=== PATIENT | male | born 1970 | race Caucasian/White ===

== ENCOUNTER 2025-02-17 17:12 | Emergency (ER) | payer BC, SELFPAY ==
--- OUTSIDE RECORDS SUMMARY | 2019-01-17 04:50 | XMS_ITS | Continuity of Care Document ---
Author Organization [facility] Address [address] [place] [address] Phone Care Team Providers Care Pre School Teacher Name Role Phone Pepe Gilman MD Unavailable Unavailable Allergies, Adverse Reactions, Alerts Substance Reaction Status Criticality No Known Allergies Active No Inform ation Medications Medication Instructions Dosage Effective Dates (start - stop) Status Comments Medrol (Axel) 4 mg tablets in a dose pack take by Oral route Not Available - Active tizanidine 4 mg tablet take 1 tablet by oral route every 6 - 8 hours as needed not to exceed 3 doses in 24 hours 4 MG - Active Naprosyn 500 mg tablet take 1 tablet by oral route 2 times every day with food 500 MG - Active Medrol (Axel) 4 mg tablets in a dose pack take by Oral route Not Available - Active Medrol (Axel) 4 mg tablets in a dose pack take by Oral route Not Available - No Longer Active Procedures Procedure Date Office/outpatient visit,est, mod 2018 X-ray exam of neck spine2-3 views Njx interlaminar crv/thrc Methylprednisolone 40 MG inj Office/outpatient visit,est, low 2017 Office/outpatient visit,est, mod 2016 X-ray exam of ankle, complete 7 Pneuma/vac walk boot pre ots Office/outpatient visit,new, mod 2016 Njx interlaminar crv/thrc Methylprednisolone 40 MG inj Office/outpatient visit,est, mod 2016 Office/outpatient visit,est, mod 2016 MRI Cervical Spine wo Contrast 17 Advance Directives Directive Yes / No Effective Date File Name No Information Encounters Encounter Description Practice Location Reason(s) For Visit Diagnoses Date Provider Providers Copied on Encounter Office/outpat ient visit,est, mod [facility], [address] [place], [place], [facility], tel:[phone] [facility] No Information 8 9 Kalina Cantu. [address] [place], [place], [id number], . tel:[phone] [facility] [address], [facility], tel:[phone] [facility] No Information 8 Kami Abrams. [address] [place], [place], [id number], [place]. tel:[phone] Office/outpat ient visit,est, low [facility], [facility] [address] [place], [place], [facility], tel:[phone] [facility] No Information 8 Kami Abrams. [address] [place], [place], [id number], [place]. tel:[phone] Office/outpat ient visit,est, mod [facility], [address] [place] [address], [facility], [place] tel:[phone] [facility] No Information 7 Ephraim Ervin. [address] [place], [place], [id number], [place]. tel:[phone] [facility] [address], [facility], tel:[phone] [facility] No Information 7 Ephraim Ervin. [address] [place], [place], [id number], [place]. tel:[phone] Office/outpat ient visit,new, mod [facility], [address], [place], [address], [place] tel:[phone] 00 [facility] cervical spine (chief complaint) Spinal stenosis, cervical regionRadicu lopathy, cervical region 7 Regshana Adenin. [address] [place], [place], [id number], [place]. tel:[phone] Referring Provider: Pepe Gilman, [address], [place], [address] . tel:[phone] Office/outpat ient visit,[facility], [facility], [facility] [place], [address], [place] tel:[phone] [facility] No Information 7 Kalina Cantu. [address], [place], [place], [address], [place]. tel:[phone] Office/outpat ient visit,est, [facility], [facility] [place], [address], [place] tel:[phone] 00 [facility] No Information 7 Kalina Cantu. [address], [place], [place], [id number], . tel:[phone] [facility], [facility] [place], [address], [place] tel:[phone] 00 [facility] No Information 7 Ephraim Ervin. [address], [place], [id number], [place]. tel:[phone] Referring Provider: Arcadio Rubi, [address], [place], [address] . tel:[phone] [facility], [address] [place], [address], [place] tel:[phone] 00 [facility] No Information 7 Ephraim Ervin. [address] [place], [place], [id number], [place]. tel:[phone] Family History Family Member Type Diagnosis Age At Onset No Information Payers Payer name Insurance type Covered alliance party ID Authorpeacephil ramirez(s) [employer] - [id number] Social History Type Description Quantity Date Captured Comments Sex Male Smoking Status No Information Chief Complaint And Reason For Visit No Information Reason For Referral Reason For Referral No Information Plan Of Treatment Date Type Action Status Future Order: Radiology Order MR I Cervical Spine WO Contrast (69215), Collected on: , Sent on: Sent History Of Present Illness Encounter Date Complaint History Of Prese nt Illness cervical spine Functional Status Date Functional Assessmen t No Information Instructions Date Instruction Additional Infor mation No Information Assessments Type Assessment Date No Information Patient Care Teams Name Effective Dates (start - stop) Status Members No Information
[2025-02-17 17:15] VITALS: BP 123/101; PULSE 96; RESP 18; TEMP 36.5; O2SAT 95; BMI 20.9
--- NOTE | 2025-02-17 17:28 | PC.NURSE ---
upon trying to obtain medical history pt states I never go to the doctor.
--- NOTE | 2025-02-17 17:30 | ED_ITS ---
<Statement entered by Aleixa Go DO - 02/17/25 20:52> I was consulted by the VINCENT, and we discussed the complexity of problems being addressed. I approve the treatment and management plan for this patient's care in the emergency department, thus performing a substantial portion of the medical decision making. Alexia Go DO Discharge Plan Disposition Patient Disposition: Home, Self-Care Condition: Good Prescriptions Prescriptions: New meloxicam 7.5 mg tablet 7.5 mg PO DAILY Qty: 30 0RF Referrals Follow up/Referrals: Vaibhav Howell MD [Nurse Practitioner, Pain Management] - See instructions Krishna Chapman DO [Staff Physician, Family Practice] - See instructions Provider,Referral, [Primary Care Provider, Medical] - See instructions Activity Restrictions/Add. Instructions Additional Instructions/Restrictions: Please call for PCP appointment above, for physical therapy referral and MRI of your lumbar spine, as well as pain management, would recommend physical therapy ibuprofen Tylenol (Mobic), do not take ibuprofen and Mobic together, ice, please follow-up with your other doctors in the upcoming days/weeks, please return to the emergency department with any worsening signs or symptoms. Clinical Impressions Clinical Impression: Lumbar radiculopathy, Spondylolisthesis of lumbar region Instructions Patient Instructions: DI for Low Back Pain Print Language Print Language: Chilean Discharge ED Provider: Alexia Go General Adult HPI General Chief complaint: Back Pain/Injury Stated complaint: lower back pain, hurts to have bowel movement Time Seen by Provider: 02/17/25 17:22 Mode of Arrival: Ambulatory Source of Information: Patient Description of Symptoms (Recalled from ER Triage Doc. by RN): pt presents to ED c/o right low back pain. pt poor historian and unable to get straight answers. pt does state I drink daily. History of Present Illness HPI narrative: 54-year-old male presents to the emergency department accompanied by his with a 3-day history of right sided lower back/flank pain, with some radiation to his abdomen, as well as some right sided with sounds like radiculopathy as it extends posteriorly down the patient's leg, patient endorses remote lower back injury several years ago, patient states I have not been to the chiropractor in 10 years, states he deals with sciatica , denies any recent injury or trauma, states that I got some new furniture and may have slept wrong on it . Patient denies any fever chills chest pain shortness of breath, admits to nausea no vomiting, denies any constipation, but states yesterday he was sitting on the toilet trying to have a bowel movement when he experienced severe pain , in his low back down his right leg, patient has had no difficulty with having a bowel movement, last bowel movement this morning, no urinary bladder or bowel dysfunction, no saddle anesthesia, no numbness or tingling of the affected extremities, denies any hematuria melena hematochezia or hematemesis, patient denies any testicular pain or swelling, urethral discharge, no recent sexual contacts or risky sexual behaviors, patient is a current everyday tobacco user (smokeless tobacco), current everyday alcohol use, patient states 3-4 beers daily , but states at least a sixpack daily , patient denies any illicit drug use. Other past medical history is consistent with what sounds like psoriasis/psoriatic arthritis, patient however somewhat of a poor historian, patient is somewhat of a poor historian, and does appear actively intoxicated at the bedside. Initial triage vitals are unremarkable. Please note that above description of symptoms, in this electronic medical record under categorization of recalled from ER triage doctor by RN are reflective of an initial nursing assessment, however, is not reflective of my full history and physical exam that was personally taken and clarified. Consequentially, this preceding description of symptoms, which may include the patient's categorized chief complaint in the EMR, do not reflect my personal clinical impression, and the ultimate description of history of present illness and patient stated complaints should be deferred to this section of the note. Unless stated otherwise or congruent with this section of the note, additional signs, symptoms, or incongruence should be interpreted as inaccurate with my clinical impression. Onset (ago): day(s) Related Data Previous Rx's ?Medication ?Instructions ?Recorded meloxicam 7.5 mg tablet 7.5 mg PO DAILY #30 tabs 02/03 Allergies Allergy/AdvReac Type Severity Reaction Status Date / Time No Known Allergies Allergy Verified 02/17/25 17:27 [facility] Disclaimer: The information contained in this section may have been updated after the patient was seen, as this information can be updated by other users. Social History Smoking Status: Current every day smoker alcohol intake: current current occupational status: other Travel in the last 8 weeks?: None ROS Obtained: Yes All systems reviewed & no additional complaints except as documented Physical Exam General General appearance: alert, in no apparent distress and appears intoxicated Head Head exam: atraumatic and normocephalic Eye Eye exam: Present PERRL and EOMI ENT ENT exam: Present mucous membranes moist Neck Neck exam: Present normal inspection Chest Chest inspection: Present normal inspection and symmetric chest wall rise Respiratory Respiratory exam: Present normal lung sounds bilaterally; Absent respiratory distress, wheezes or stridor Cardiovascular Cardiovascular exam: Present regular rate and normal rhythm Abdominal Exam Abdominal exam: Present soft and tenderness; Absent guarding, rebound, rigidity or tenderness at McBurney's Point Abdominal tenderness: Present RLQ and mild Extremities Exam Extremities exam: Present normal inspection Back Exam Back exam: Present paraspinal tenderness and straight leg raise (R); Absent vertebral tenderness or straight leg raise (L) Comment: Mild paraspinal tenderness palpation to the right sided lower lumbar spine,/buttock area, faintly positive straight leg test on the right Neurological Exam Neurological exam: Present alert, oriented X3 and other (5 out of 5 strength in the bilateral lower and upper extremities, no gross sensation deficit) Psychiatric Psychiatric exam: Present normal affect Skin Skin exam: Present warm and dry Medical Decision Making Medical Records Medical records reviewed: Yes I reviewed the patient's medical records. Screening: Per USPSTF and CDC recommendations, given the prevalence of disease in our region, it is our hospital?s policy to screen for HIV and viral Hepatitis for all patients aged 18 and over and those with ongoing risk factors. Rishabh Inquiry Pt receiving controlled substance: No Rishabh was queried for this patient: No Vital Signs: 02/17/25 17:15 02/17/25 18:00 02/17/25 18:23 Temperature 97.7 F Temperature Source Oral Pulse Rate 78 71 Pulse Rate [Right Radial] 96 H Respiratory Rate 18 18 Blood Pressure 120/86 120/86 Blood Pressure [Right Arm] 123/101 H Blood Pressure Mean [Right Arm] 108 Blood Pressure Source Automatic Cuff Blood Pressure Source [Right Arm] Automatic Cuff Blood Pressure Position Sitting Blood Pressure Position [Right Arm] Sitting 02 Sat by Pulse Oximetry 95 99 95 Oxygen Delivery Method Room Air Room Air 02/17/25 18:30 Temperature Temperature Source Pulse Rate 69 Pulse Rate [Right Radial] Respiratory Rate Blood Pressure 121/87 Blood Pressure [Right Arm] Blood Pressure Mean [Right Arm] Blood Pressure Source Blood Pressure Source [Right Arm] Blood Pressure Position Blood Pressure Position [Right Arm] 02 Sat by Pulse Oximetry 99 Oxygen Delivery Method Lab Data Lab results reviewed: Yes I reviewed the patient's lab results. Lab Results 02/17/25 17:27: Urine Opiates Screen Negative, Urine Methadone Screen Negative, Ur Barbituates Screen Negative, Ur Phencyclidine Scrn Negative, Ur Amphetamines Screen Negative, U Benzodiazepines Scrn Negative, Urine Cocaine Screen Negative, U Marijuana (THC) Screen Negative 02/17/25 17:29: WBC 5.0, RBC 4.43 L, Hgb 15.7, Hct 43.0, MCV 97.1 H, MCH 35.4 H, MCHC 36.5 H, RDW 12.2, Plt Count 125 L, MPV 9.5, Neut % (Auto) 45.7, Lymph % (Auto) 41.2, [place] % (Auto) 11.1 H, Eos % (Auto) 0.8, Baso % (Auto) 1.0, Neut # (Auto) 2.3, Lymph # (Auto) 2.1, Gl[place] # (Auto) 0.6, Eos # (Auto) 0.0, Baso # (Auto) 0.1, PT 11.9, INR 1.08, APTT 25.4, Sodium 147 H, Potassium 4.1, Chloride 108 H, Carbon Dioxide 28, Anion Gap 15.1 H, BUN 6 L, Creatinine 0.80, Estimated Creat Clear 102, Estimated GFR 101, Est GFR ( Amer) 122, Glucose 91, Calcium 9.6, Total Bilirubin 0.7, AST 188 H, ALT 74, Alkaline Phosphatase 81, T otal Protein 8.7 H, Albumin 4.7, Globulin 4.0 H, Albumin/Globulin Ratio 1.2, Amylase 92, Lipase 303 H, Plasma/Serum Alcohol 373 H 02/17/25 17:31: Lactate 1.2 02/17/25 17:55: Urine Color Yellow, Urine Appearance Clear, Urine pH 6.0, Ur Specific [place] <= 1.005, Urine Protein Negative, Urine Glucose (UA) Negative, Urine Ketones Negative, Urine Blood Negative, Urine Nitrate Negative, Urine Bilirubin Negative, Urine Urobilinogen 0.2, Ur Leukocyte Esterase Negative 02/17/25 17:29 02/17/25 17:29 Orders (Tests/Meds): ED MEDICATIONS Generic Name Dose Route Start Last Admin Trade Name Freq PRN Reason Stop Dose Admin Sodium Chloride 10 ml 02/17/25 17:27 Sodium Chloride 0.9% 10ml Flush Syringe IV 03/19/25 17:26 NEEDED PRN Maintain IV Site Sodium Chloride 10 ml 02/17/25 18:51 02/17/25 18:51 Sodium Chloride 0.9% 10ml Syr (Rad Only) IV 03/19/25 18:50 10 ml NEEDED PRN Administration Maintain IV Site Discontinued Medications Generic Name Dose Route Start Last Admin Trade Name Freq PRN Reason Stop Dose Admin Iopamidol 75 ml 02/17/25 18:48 02/17/25 18:50 Iopamidol-370 (76%);100ml Bottle IV 02/17/25 18:49 75 ml ONCE ONE Administration Ketorolac Tromethamine 15 mg 02/17/25 17:41 02/17/25 17:49 Ketorolac 15mg/Ml Vial IV 02/17/25 17:42 15 mg ONCE ONE Administration Ondansetron HCl 4 mg 02/17/25 17:42 02/17/25 17:49 Ondansetron 4mg/2ml Vial IV 02/17/25 17:43 4 mg ONCE ONE Administration ORDERS Category Date Time Status CT abdomen pelvis w con Stat Cat Scan 02/17/25 17:[address] lumbar spine wo con Stat Cat Scan 02/17/25 17:41 Completed Amylase Stat Lab 02/17/25 17:29 Completed Complete Blood Count Auto Diff Stat Lab 02/17/25 17:29 Completed Comprehensive Metabolic Panel Stat Lab 02/17/25 17:29 Completed Ethanol [Ethyl Alcohol] Stat Lab 02/17/25 17:29 Completed Lactic Acid Stat Lab 02/17/25 17:31 Completed Lipase Stat Lab 02/17/25 17:29 Completed PT INR [Prothrombin Time INR] Stat Lab 02/17/25 17:29 Completed PTT [Activated Partial Thrombo Time] Stat Lab 02/17/25 17:29 Completed UDS [Drug Screen,Urine] Stat Lab 02/17/25 17:27 Completed Urinalysis and Microscopic Stat Lab 02/17/25 17:55 Results Medical Decision Narrative: 54-year-old male presents to the emergency department with right sided lower back pain/radiculopathy, right-sided flank pain, for 3 days, differential diagnose include but not limited to pancreatitis, cholecystitis, hepatitis, cirrhosis, cholelithiasis, acute lumbar sacral strain, degenerative disc disease of lumbar spine, lumbar spondylosis, diverticulitis, acute UTI, acute pyelonephritis, nephrolithiasis, ureterolithiasis, among others. I discussed this patient's case with the attending physician Will obtain basic laboratory studies, lipase amylase, UDS, PT, INR, PTT UA, lactic acid level, ethyl alcohol level, obtain CT and pelvis with contrast, CT lumbar spine without contrast, will give 15 mg IV Toradol and 4 mg IV Zofran for pain and nausea. MCV is mildly elevated at 97.1, thrombocytopenia at 125, otherwise unremarkable CBC No lactic acidosis UA is unremarkable Ethyl alcohol level is elevated at 373 CMP is notable for mild hyponatremia at 147, AST is elevated at 188, lipase level is elevated 303, otherwise unremarkable CMP. PT/INR and PTT within normal limits UDS negative I reviewed the patient's CT lumbar spine without contrast along the corresponding radiologic report, no acute osseous abnormality, bilateral L4 spondylosis with grade 1 anterior thesis of L4 and L5, degenerative findings as above. I reviewed the patient CT abdomen pelvis with contrast along the corresponding radiological report, no acute abnormality involving the abdomen or pelvis nonemergent findings as above. I discussed the results with the patient him at the bedside, patient and family are in agreement with the current treatment plan/discharge plan, patient is current everyday drinker, has no plans to stop, recommend physical therapy, PCP follow-up with MRI of the lumbar spine, patient has no red flag signs or symptoms, no numbness or tingling saddle anesthesia urinary bladder or bowel dysfunction, discussed need to follow-up with spine surgeon/pain management as well as PCP. Patient voiced understanding and agreement to current treatment plan/discharge plan. Believe the patient's lipase elevation is minimal, and does not attribute to his current symptomatology. Will prescribe the patient Mobic 7.5 mg p.o. as needed for symptomatic relief, patient was given strict ED return precautions. Patient family voiced understanding and agreement with the current treatment plan/discharge plan. Of note, I did offer muscle relaxers, short course of steroids to the patient and family the bedside patient declined at this time but would like to pursue anti-inflammatory medications. Critical Care Critical Care Time Critical Care Time: No
--- NOTE | 2025-02-17 17:32 | PC.NURSE ---
urinal at bedside. pt instructed on needing sample.
--- NOTE | 2025-02-17 17:40 | CT_ITS ---
PROCEDURE INFORMATION: Exam: CT Abdomen And Pelvis With Contrast Exam date and time: 02/17/2025 6:50 PM Age: 54 years old Clinical indication: Other: Lower back pain; Additional info: Lower back pain, constipation, lower abd pain RT TECHNIQUE: Imaging protocol: Computed tomography of the abdomen and pelvis with contrast. Radiation optimization: All CT scans at this facility use at least one of these dose optimization techniques: automated exposure control; mA and/or kV adjustment per patient size (includes targeted exams where dose is matched to clinical indication); or iterative reconstruction. Contrast material: ISOVUE; Contrast volume: 75 ml; Contrast route: IV; COMPARISON: No relevant prior studies available. FINDINGS: Limitations: Patient motion. Lungs: Bibasilar dependent hypoventilatory change. Liver: Hepatic steatosis. Gallbladder and biliary ducts: Normal. No calcified stones. No ductal dilation. Pancreas: Normal. No ductal dilation. Spleen: Normal. No splenomegaly. Adrenal glands: Normal. No mass. Kidneys and ureters: Normal. No hydronephrosis. Stomach and bowel: Unremarkable. No obstruction. No mucosal thickening. Appendix: Normal appendix. Intraperitoneal space: Unremarkable. No free air. No significant fluid collection. Vasculature: Vascular calcification. Phleboliths within the pelvis. Lymph nodes: Unremarkable. No enlarged lymph nodes. Urinary bladder: Thickening of the urinary bladder wall at least in part secondary to under distension. Reproductive: Unremarkable as visualized. Bones/joints: There are degenerative changes involving the spine. Soft tissues: Unremarkable. IMPRESSION: 1. No acute abnormality involving the abdomen or pelvis. 2. Non emergent findings as above.
--- NOTE | 2025-02-17 17:41 | CT_ITS ---
PROCEDURE INFORMATION: Exam: CT Lumbar Spine Without Contrast Exam date and time: 02/17/2025 6:55 PM Age: 54 years old Clinical indication: Low back pain; Additional info: Right lower back pain, right radiculopathy TECHNIQUE: Imaging protocol: Computed tomography of the lumbar spine without contrast. Radiation optimization: All CT scans at this facility use at least one of these dose optimization techniques: automated exposure control; mA and/or kV adjustment per patient size (includes targeted exams where dose is matched to clinical indication); or iterative reconstruction. COMPARISON: CT ABDOMEN PELVIS W CON 02/17/2025 6:50 PM FINDINGS: Bones/joints: Trace retrolisthesis of L2 on L3 and L3 on L4. Grade 1 anterolisthesis of L4 on L5. Bilateral L4 spondylolysis. Vertebral body heights are preserved. Moderate prevertebral osteophytosis. Bilateral facet joint degenerative change. No acute lumbar spine fracture. No definite high-grade central canal stenosis within limitations of technique. Foraminal stenosis greatest at L4-L5, moderate to severe bilaterally. Kidneys and ureters: Bilateral renal excretion of contrast. Soft tissues: Unremarkable. IMPRESSION: 1. No acute osseous abnormality. 2. Bilateral L4 spondylolysis with grade 1 anterolisthesis of L4 on L5. 3. Degenerative findings as above.
[2025-02-17 17:47] LABS: Hematocrit 43.0 % (42.0-52.0); Hemoglobin 15.7 g/dL (14.1-18.0); Immature Granulocytes % 0.2 %; Mean Corpuscular HGB Conc 36.5 g/dL (31.8-35.4); Mean Corpuscular Hemoglobin 35.4 pg (27.0-31.2); Mean Corpuscular Volume 97.1 fl (80-94); Nucleated Red Blood Cells % 0 %; Platelet Count 125 K/mm3 (142-424); Red Blood Count 4.43 M/mm3 (4.60-6.20); Red Cell Distribution Width-SD 44.1 fL; White Blood Count 5.0 K/mm3 (4.8-10.8)
[2025-02-17] MEDS: ONDANSETRON 4MG/2ML VIAL 4 MG IV (17:49)
[2025-02-17] MEDS: KETOROLAC 15MG/ML VIAL 15 MG IV (17:49)
[2025-02-17 18:00] VITALS: BP 120/86; PULSE 78; O2SAT 99
[2025-02-17 18:03] LABS: Microscopic, Urine URINE MICROSCOPIC (MICROSCOPIC)
--- OUTSIDE RECORDS SUMMARY | 2025-02-17 18:05 | XMS_ITS | Clinical Summary ---
Author Organization [facility] Address [address] [place] [address] Phone Care Team Providers Care Technology Infusion Specialist Name Role Phone Jose Gomez MD Primary Care Provider [phone] Allergies Active Allergy Reactions Criticality Noted Date Comments Paroxetine Hcl Other (See Comments) 07/06/2011 Muscle spasm Medications * This document contains information received from the source organization and may not represent a complete record from that organization. ixekizumab (TALTZ AUTOINJECTOR) 80 mg/mL SubQ Auto-Injector Subcutaneous (Inject under the skin) 80 mg every 28 days. Active Active Problems Problem Noted Date Diagnosed Date Alcoholism /alcohol abuse 07/29/2016 Overview (07/29/2016): Last drink on 07/02/16. Doing monthly Vivitrol injections. Thrombocytopenia 07/29/2016 Elevated LFTs 07/11/2016 Plaque psoriasis 07/04/2016 Overview (07/04/2016): On ixekizumab (TALTZ AUTOINJECTOR) 80 mg/mL SubQ Auto-Injector. Subcutaneous (Inject under the skin) 80 mg every 28 days. Tobacco abuse 07/04/2016 Overview (07/04/2016): Snuff ( dip ) Alcoholic fatty liver 09/18/2014 Nummular eczema 08/25/2009 Resolved Problems Problem Noted Date Diagnosed Date Resolved Date Alcohol withdrawal syndrome without complication 07/04/2016 07/29/2016 Anxiety 07/06/2011 07/10/2016 Alcohol abuse 07/06/2011 07/10/2016 Overview (07/04/2016): Patient is a daily drinker. Drinking 12 pack of 16oz cans of high ABV beer (6.9%). Last drink 07/02/16. Wants to quit Psoriasis 07/10/2016 Eczema 07/10/2016 Immunizations Immunization Administration Dates Next Due PPD Test 02/21/2011 Td, Unspecified Formulation 06/12/2001 Tdap 12/27/2010 Surgical History Surgery Date Site/Laterality Comments ORTHOPEDIC SURGERY 06/12/2008 - 06/11/2009 Left Knee KNEE SURGERY 06/12/2006 - 06/11/2007 Staph infection Medical History Medical History Date Comments Anxiety Eczema Psoriasis Alcohol dependence (HCC) Family History Medical History Relation Name Comments Alcohol Abuse Maternal Grandfather Relation Name Status Comments Maternal Grandfather Social History Tobacco Use Types Packs/Day Years Used Date Smoking Tobacco: Never Smokeless Tobacco: Former Snuff Quit: 07/04/2016 Alcohol Use Standard Drinks/Week Comments Yes 12 (1 standard drink = 0.6 oz pu re alcohol) every day Sex and Gender Information Value Date Recorded Sex Assigned at Not on file Legal Sex Male 9:43 AM EDT Gender Identity Not on file Sexual Orientation Not on file Obstetrics History Last Filed Vital Signs Vital Sign Reading Time Taken Comments Blood Pressure 126/86 07/29/2016 8:45 AM EST Pulse 80 07/29/2016 8:45 AM EST Temperature 36.7 C (98.1 F) 07/29/2016 8:45 AM EST Respiratory Rate 18 07/12/2016 8:25 PM EST Oxygen Saturation 100% 07/12/2016 8:25 PM EST Inhaled Oxygen Concentration - - Weight 68.5 kg (151 lb) 07/29/2016 8:45 AM EST Height 177.8 cm (5' 10 ) 07/07/2016 2:10 PM EST Body Mass Index 21.67 07/07/2016 2:10 PM EST Plan of Treatment Health Maintenance Due Date Last Done Comments Annual Wellness Exam 1973 COVID-19 Vaccine (#1) 1975 Hepatitis B Vaccine (1 of 3 - 19+ 3-dose series) 1989 Pneumococcal Vaccine 50+ (1 of 2 - PCV) 1989 Zoster (1 of 2) 1989 Cologuard 2015 Colon Cancer Screening 2015 Colonoscopy 2015 FIT 2015 Sigmoidoscopy 2015 Virtual Colonography 2015 DTaP/TDaP/Td (2 - Td or Tdap) 12/27/2020, 06/12/2001 Influenza Vaccine (#1) 2025 Meningococcal B Vaccine Aged Out No l onger eligible based on patient's age to complete this topic Insurance [employer] PPO ANTH PPO ANTHEM PPO ANTHEM PPO Advance Directives For more information, please contact: [phone] * Full Code (Latest Code Status on File) Date Activated Date Inactivated Comments 07/07/2016 2:58 PM 07/13/2016 1:53 PM * Full Code Date Activated Date Inactivated Comments 07/04/2016 5:04 PM 07/06/2016 6:24 PM Care Teams Technology Infusion Specialist Relationship Specialty Start Date End Date Jose Gomez MD PCP - General Family Medicine 09/03/14
--- OUTSIDE RECORDS SUMMARY | 2025-02-17 18:05 | XMS_ITS | Clinical Summary ---
Author Organization Health Address [address] [place] [id number] Care Team Providers Care Auto Hauler Name Role Phone Historical, Centricity Primary Care Provider Leslie vailable Source Comments This information has been disclosed to you from confidential records protectedfrom disclosure by state law. You shall make no further disclosure of thisinformation without the specific, written, and informed release of theindividual to whom it pertains, or as otherwise permitted by law. A generalauthorization for the release of medical or other information is not sufficientfor the purposes of therelease of HIV test results or diagnoses. [id number] Allergies No known active allergies Medications triamcinolone (KENALOG) 0.1 % ointmentIndicat ions:Psoriasis Apply topically 2 times a day. 454 g 1 3 Active polymyxin B sulf-trimethopr im (POLYTRIM) 10,000 unit- 1 mg/mL Drop ophthalmic solution 4 Active Active Problems Problem Noted Date Diagnosed Date Encounter for long-term (current) use of other m edications 05/30/2011 Other psoriasis 01/14/2011 Family History Medical History Relation Comments Psoriasis Paternal Grandfather Melanoma Neg Hx Relation Status Comments Paternal Grandfather Social History Tobacco Use Types Packs/Day Years Used Date Smoking Tobacco: Never Alcohol Use Standard Drinks/Week Comments Yes 0 (1 standard drink = 0.6 oz pur e alcohol) Sex and Gender Information Value Date Recorded Sex Assigned at Not on file Legal Sex Male 7:10 PM EST Gender Identity Not on file Sexual Orientation Not on file Plan of Treatment Not on file Insurance [employer] Care Teams Auto Hauler Relationship Specialty Start Date End Date Historical, Centricity PCP - General 10/27/10
[2025-02-17 18:16] LABS: Albumin Level 4.7 g/dl (3.5-5.0); Chloride 108 mmol/L (98-107); Sodium 147 mmol/L (136-145)
[2025-02-17 18:17] LABS: Potassium 4.1 mmoL/L (3.5-5.1)
[2025-02-17 18:19] LABS: Alanine Aminotransferase 74 U/L (12-78); Albumin/Globulin Ratio 1.2 (1.1-1.8); Alkaline Phosphatase 81 U/L (38-126); Amylase 92 U/L (30-110); Anion Gap 15.1 mEq/L (5-15); Aspartate Amino Transferase 188 U/L (17-59); Bilirubin,Total 0.7 mg/dl (0.2-1.3); Blood Urea Nitrogen 6 mg/dl (9-20); Calcium 9.6 mg/dl (8.4-10.2); Carbon Dioxide 28 mmol/L (22.0-30.0); Creatinine Clearance Estimated 102 mL/min (50-200); Creatinine,Serum 0.80 mg/dl (0.66-1.25); Estimated Glomerular Filt Rate 101 ml/min (>60); GFR (African American) 122 ML/MIN (>60); Globulin 4.0 g/dL (1.3-3.2); Glucose 91 mg/dl (74-100); Lipase 303 U/L (23-300); Total Protein,Serum 8.7 g/dl (6.3-8.2)
[2025-02-17 18:23] VITALS: BP 120/86; PULSE 71; RESP 18; O2SAT 95
[2025-02-17 18:30] VITALS: BP 121/87; PULSE 69; O2SAT 99
[2025-02-17 18:30] LABS: Bilirubin,Urine Negative (Negative); Color,Urine YELLOW (Yellow); Glucose,Urine (UA) Negative (Negative); Ketones,Urine Negative (Negative); Leukocyte Esterase,Urine Negative (Negative); PH,Urine 6.0 (5.0-8.5); Protein,Urine Negative (Negative); Specific Gravity, Urine <= 1.005 (1.005-1.030); Urobilinogen,Urine 0.2 EU/dl (0.2)
--- NOTE | 2025-02-17 18:38 | PC.NURSE ---
CRITICAL ETHANOL LEVEL 373, PT NAME AND R/V. TIM FLYNN NOTIFIED
--- NOTE | 2025-02-17 18:45 | PC.NURSE ---
pt going to radiology at this time.
[2025-02-17] MEDS: IOPAMIDOL-370 (76%);100ML BOTTLE 75 ML IV (18:50)
[2025-02-17] MEDS: SODIUM CHLORIDE 0.9% 10ML SYR (RAD ONLY) 10 ML IV (18:51)
[2025-02-17 18:56] LABS: Activated Partial Thrombo Time 25.4 seconds (22.8-30.6); INR 1.08 (0.9-1.1); Prothrombin Time 11.9 seconds (10.1-12.5)
[2025-02-17 18:57] LABS: Amphetamine/Metha Screen,Urine Negative ng/ml (<1000)
[2025-02-17 18:58] LABS: Barbiturates Screen,Urine Negative ng/ml (<200)
[2025-02-17 18:59] LABS: Benzodiazepines Screen,Urine Negative ng/ml (<200)
[2025-02-17 19:01] LABS: Methadone Screen,Urine Negative ng/ml (<300); Opiate Screen,Urine Negative ng/ml (<300)
[2025-02-17 19:02] LABS: Phencyclidine Screen,Urine Negative ng/ml (<25)
[2025-02-17 19:52] VITALS: BP 121/87; PULSE 69; RESP 16; TEMP 36.5; O2SAT 99
[2025-02-17 20:30] LABS: Squamous Epithelial Cell,Urine Occasional #/hpf (0-5); WBC,Urine Occasional #/hpf (0-3)
[2025-02-17 20:31] LABS: Bacteria,Urine Trace /lpf
== END 2025-02-17 19:54 | disposition home or self-care (01) ==
PROVIDERS: Physician Assistant; Emergency Provider Student in an Organized Health Care Education/Training Program
DX: M54.16 Radiculopathy, lumbar region (principal); M43.16 Spondylolisthesis, lumbar region; F10.129 Alcohol abuse with intoxication, unspecified; F17.290 Nicotine dependence, other tobacco product, uncomplicated; E87.0 Hyperosmolality and hypernatremia; D69.6 Thrombocytopenia, unspecified; Y90.8 Blood alcohol level of 240 mg/100 ml or more
CPT/HCPCS: 72131; 74177; 80053; 80307; 80320; 81001; 82150; 83605; 83690; 85025; 85610; 85730; 96374; 96375; 99284; 99285; J1885; J2405; Q9967